=== PATIENT | female | born 1985 | race Hispanic/Latino ===

== ENCOUNTER 2017-07-26 09:35 | Inpatient (IN) | payer BC, OTHER ==
[~2017-07-26] VITALS: Ht 154.9 cm; Wt 81.6 kg
[~2017-07-26 09:35] MED LIST: LINZESS PO
[2017-07-26] MEDS ORDERED: ONDANSETRON HCL INJ 2 MG/ML VIAL IV STA (10:16)
[2017-07-26] MEDS ORDERED: MORPHINE SULFATE 4 MG/ML SYR IV STA (10:16)
[2017-07-26] MEDS ORDERED: SODIUM CHLORIDE 0.9% 1000ML 1,000 ML IV STA (10:16)
[2017-07-26] MEDS ORDERED: MORPHINE SULFATE 2 MG/ML SYR ONE (10:37)
[2017-07-26 10:59] LABS: BASOPHILS % 0.1 % (0.0-1.0); EOSINOPHILS # (AUTO) 0.1 (0.0-0.4); EOSINOPHILS % 0.8 % (0.0-6.0); HEMATOCRIT 38.2 % (34.2-44.1); HEMOGLOBIN 12.1 g/dL (12.0-16.0); LYMPHOCYTES # (AUTO) 1.7 (1.0-3.2); LYMPHOCYTES % 12.7 % (18.0-39.1); MEAN CORPUSCULAR HEMOGLOBIN 29.1 pg (28-32); MEAN CORPUSCULAR HGB CONC 31.7 g/dL (31-35); MEAN CORPUSCULAR VOLUME 91.8 fL (81-99); MONOCYTES # (AUTO) 0.9 (0.2-0.8); MONOCYTES % 6.6 % (4.4-11.3); NEUTROPHILS # (AUTO) 10.3 (2.1-6.9); NEUTROPHILS % 79.5 % (38.7-80.0); PLATELET COUNT 281 x10e3/uL (140-360); RED BLOOD COUNT 4.16 x10e6/uL (3.6-5.1); RED CELL DISTRIBUTION WIDTH 13.8 % (11.7-14.4)
[2017-07-26 11:16] LABS: BILIRUBIN,URINE NEGATIVE (NEGATIVE); CLARITY,URINE SL CLOUDY (CLEAR); COLOR,URINE AMBER (YELLOW); KETONES,URINE NEGATIVE (NEGATIVE); LEUKOCYTE ESTERASE ,URINE NEGATIVE (NEGATIVE); NITRITE,URINE NEGATIVE (NEGATIVE); PROTEIN,URINE DIPSTICK NEGATIVE (NEGATIVE); URINE UROBILINOGEN 0.2 mg/dL (0.2 - 1)
[2017-07-26 11:17] LABS: BACTERIA,URINE RARE /HPF; EPITHELIAL CELLS,URINE FEW /LPF; RBC,URINE 0-5 /HPF (0-5)
[2017-07-26 11:20] LABS: AMORPHOUS SEDIMENT,URINE RARE (FEW); MUCUS,URINE RARE (RARE)
[2017-07-26 11:22] LABS: ALANINE AMINOTRANSFERASE 14 IU/L (0-55); ALBUMIN 3.7 g/dL (3.5-5.0); ALKALINE PHOSPHATASE 69 IU/L (40-150); ANION GAP 12.8 mmol/L (8-16); BLOOD UREA NITROGEN 10 mg/dL (7-26); BUN/CREATININE RATIO 14 (6-25); CALCIUM 9.3 mg/dL (8.4-10.2); CARBON DIOXIDE 25 mmol/L (22-29); CHLORIDE 107 mmol/L (98-107); CREATININE, SERUM 0.69 mg/dL (0.57-1.11); EST GLOMERULAR FILTRATION RATE > 60 ML/MIN (60-); GLUCOSE 91 mg/dL (74-118); POTASSIUM 3.8 mmol/L (3.5-5.1); SODIUM 141 mmol/L (136-145)
[2017-07-26] MEDS ORDERED: KETOROLAC TROMETHAMINE 30 MG/ML VIAL IV STA (11:44)
--- NOTE | 2017-07-26 12:04 | Diagnostic Imaging Report ---
PROCEDURE: CT ABDOMEN AND PELVIS WITHOUT CONTRAST TECHNIQUE: The abdomen and pelvis were scanned utilizing a multidetector helical scanner from the diaphragm to the lesser trochanter without contrast medium. No IV contrast was administered per protocol/per physician request). Coronal and sagittal multiplanar reformations were obtained. DLP: 589.39 COMPARISON: None. INDICATIONS: Severe left-sided flank pain. FINDINGS: ABSENCE OF INTRAVENOUS CONTRAST DECREASES SENSITIVITY FOR DETECTION OF FOCAL LESIONS AND VASCULAR PATHOLOGY. LOWER THORAX: Normal. HEPATOBILIARY: No focal hepatic lesions. No biliary ductal dilatation. There are non-calcified calculi and sludge within the gallbladder lumen. SPLEEN: No splenomegaly. PANCREAS: No focal masses or ductal dilatation. ADRENALS: No adrenal nodules. KIDNEYS/URETERS: No hydronephrosis, stones, or solid mass lesions. Duplicated left renal collecting system. PELVIC ORGANS/BLADDER: Unremarkable. PERITONEUM / RETROPERITONEUM: Small volume of free fluid within the cul-de-sac. LYMPH NODES: No lymphadenopathy. VESSELS: Unremarkable. GI TRACT: No distention or wall thickening. Diverticulosis throughout the entire colon. There is marked stranding of the fat about the posterior aspect of the proximal to mid descending colon, consistent with a trace volume of free fluid, consistent with acute diverticulitis. No exacerbation of his time. BONES AND SOFT TISSUES: Small fat-containing umbilical hernia. IMPRESSION: 1. Acute descending colon diverticulitis. No abscess formation. 2. Cholelithiasis and gallbladder sludge. No biliary dilatation. Denilson Rodgers M.D. Dictated by: Denilson Rodgers M.D. on 07/26/2017 at 12:05 Electronically approved by: Denilson Rodgers M.D. on 07/26/2017 at 12:05
[2017-07-26] MEDS ORDERED: CIPROFLOXACIN 400 MG/D5W 200ML 200 ML IV ONE (12:45)
[2017-07-26] MEDS ORDERED: METRONIDAZOLE 500MG/NS 100ML 100 ML IV ONE (12:45)
--- NOTE | 2017-07-26 13:38 | Diagnostic Imaging Report ---
PROCEDURE:US PELVIS COMPLETE NON OB COMPARISON:None. INDICATIONS:R/O OVARIAN CYST/TORSION CONCLUSION: Please refer to ultrasound pelvic Doppler performed at the same date and time for full dictated report. Denilson Rodgers M.D. Dictated by: Denilson Rodgers M.D. on 07/26/2017 at 13:39 Electronically approved by: Denilson Rodgers M.D. on 07/26/2017 at 13:39
--- NOTE | 2017-07-26 13:38 | Diagnostic Imaging Report ---
PROCEDURE:PELVIC DOPPLER US COMPARISON:[facility], CT, CT ABDOMEN/PELVIS WO, 07/26/2017, 11:42. INDICATIONS:R/O OVARIAN CYST/TORSION FINDINGS: A0. LMP: 07/07/17. Multiple sagittal and axial images were obtained of the pelvis transabdominally and transvaginally. The uterus measures 8.1 x 4.8 x 6.2 cm. It is of normal echogenicity without focal masses. The endometrial stripe measures 1.0 and is within normal limits. The cervix is normal in appearance. The right ovary measures 3.4 x 1.8 x 2.6 cm. It is of normal echogenicity without focal masses. The left ovary measures 2.8 x 2.3 x 2.8 cm. It is of normal echogenicity without focal masses. No right or left paraovarian masses identified. Color and spectral Doppler demonstrated blood flow within both ovaries. Moderate free fluid seen within the pelvic cul-de-sac. CONCLUSION: 1. No evidence of ovarian torsion. 2. Moderate volume of free fluid within the cul-de-sac, otherwise unremarkable study. Denilson Rodgers M.D. Dictated by: Denilson Rodgers M.D. on 07/26/2017 at 13:39 Electronically approved by: Denilson Rodgers M.D. on 07/26/2017 at 13:39
[2017-07-26] MEDS ORDERED: HYDROMORPHONE 1MG/1ML INJ IV STA (13:39)
[2017-07-26] MEDS ORDERED: HYDROMORPHONE 1MG/1ML INJ IV SCH (13:45)
[2017-07-26] MEDS: METRONIDAZOLE 500MG/NS 100ML 100 ML IV SCH ×2 (13:59→21:45)
[2017-07-26] MEDS: SODIUM CHLORIDE 0.9% 1000ML 1,000 ML IV SCH ×2 (13:59→21:44)
[2017-07-26] MEDS ORDERED: METRONIDAZOLE 500MG/NS 100ML IV SCH (14:00)
[2017-07-26] MEDS: CIPROFLOXACIN 400 MG/D5W 200ML 200 ML IV SCH (14:30)
--- OUTSIDE RECORDS SUMMARY | 2017-07-26 15:14 | XMS REPORT ---
Author Author [facility] Address Unknown Phone Unavailable Care Team Providers Care Manager Agricultural Name Role Phone VICTOR MANUEL NIX Unavailable Unavailable Problems This patient has no known problems. Allergies, Adverse Reactions, Alerts This patient has no known allergies or adverse reactions. Medications This patient has no known medications. Results Test Description Test Time Test Comments Text Results Atomic Results Result Comments CT ABDOMEN/PELVIS WO [place] [address] Patient Name: LIZZ PALUMBO MR #: [id number] : 1985 Age/Sex: 32/F Req #: [id number] Adm Physician: Ordered by: JONAH RIBEIRO [employer] OF [employer] Report #: [id number] Location: ER Room/Bed: Procedure: [id number] CT/CT ABDOMEN/PELVIS WO Exam Date: 07/26/17 Exam Time: 1153 REPORT STATUS: Signed PROCEDURE: CT ABDOMEN AND PELVIS WITHOUT CONTRAST TECHNIQUE: The abdomen and pelvis were scanned utilizing a multidetector helical scanner from the diaphragm to the lesser trochanter without contrast medium. No IV contrast was administered per protocol/per physician request). Coronal and sagittal multiplanar reformations were obtained. DLP: 589.39 COMPARISON: None. INDICATIONS: Severe left-sided flank pain. FINDINGS: ABSENCE OF INTRAVENOUS CONTRAST DECREASES SENSITIVITY FOR DETECTION OF FOCAL LESIONS AND VASCULAR PATHOLOGY. LOWER THORAX: Normal. HEPATOBILIARY: No focal hepatic lesions. No biliary ductal dilatation. There are non- calcified calculi and sludge within the gallbladder lumen. SPLEEN: No splenomegaly. PANCREAS: No focal masses or ductal dilatation. ADRENALS: No adrenal nodules. KIDNEYS/URETERS: No hydronephrosis, stones, or solid mass lesions. Duplicated left renal collecting system. PELVIC ORGANS/BLADDER: Unremarkable. PERITONEUM / RETROPERITONEUM: Small volume of free fluid within the cul-de-sac. LYMPH NODES: No lymphadenopathy. VESSELS: Unremarkable. GI TRACT: No distention or wall thickening. Diverticulosis throughout the entire colon. There is marked stranding of the fat about the posterior aspect of the proximal to mid descending colon, consistent with a trace volume of free fluid, consistent with acute diverticulitis. No exacerbation of his time. BONES AND SOFT TISSUES: Small fat-containing umbilical hernia. IMPRESSION: 1. Acute descending colon diverticulitis. No abscess formation. 2. Cholelithiasis and gallbladder sludge. No biliary dilatation. Denilson Hansen M.D. Dictated by: Denilson Hansen M.D. on 07/26/2017 at 12:05 Electronically approved by: Denilson Hansen M.D. on 07/26/2017 at 12: 05 Dictated By: SYED HANSEN MD, MD [id number] Transcribed By: EFRAÍN on 07/26/17 1205 COPY TO: JONAH RIBEIRO [employer] PELVIC DOPPLER [place] [address] Patient Name: LIZZ PALUMBO MR #: [id number] : 1985 Age/Sex: 32/F Req #: [id number] Adm Physician: Ordered by: JONAH RIBEIRO NP Report #: [id number] Location: ER Room/Bed: Procedure: [id number] US/US PELVIC DOPPLER LTD Exam Date: Exam Time: REPORT STATUS: Signed PROCEDURE: PELVIC DOPPLER US COMPARISON: Patients [facility], CT, CT ABDOMEN/ PELVIS WO, 07/26/2017, 11:42. INDICATIONS: R/O OVARIAN CYST/ TORSION FINDINGS: A0. LMP: 07/07/17. Multiple sagittal and axial images were obtained of the pelvis transabdominally and transvaginally. The uterus measures 8.1 x 4.8 x 6.2 cm. It is of normal echogenicity without focal masses. The endometrial stripe measures 1.0 and is within normal limits. The cervix is normal in appearance. The right ovary measures 3.4 x 1.8 x 2.6 cm. It is of normal echogenicity without focal masses. The left ovary measures 2.8 x 2.3 x 2.8 cm. It is of normal echogenicity without focal masses. No right or left paraovarian masses identified. Color and spectral Doppler demonstrated blood flow within both ovaries. Moderate free fluid seen within the pelvic cul-de-sac. CONCLUSION: 1. No evidence of ovarian torsion. 2. Moderate volume of free fluid within the cul-de-sac, otherwise unremarkable study. Denilson Hansen M.D. Dictated by: Denilson Hansen M.D. on 05/2017 at 13:39 Electronically approved by: Denilson Hansen M.D. on 07/26/2017 at 13:39 Dictated By: SYED HANSEN MD, MD [id number] Transcribed By : EFRAÍN on 07/26/17 1339 COPY TO: JONAH RIBEIRO [employer] US PELVIS COMPLETE NON OB [place] [address] Patient Name: LIZZ PALUMBO MR #: [id number] : 1985 Age/Sex: 32/F Req #: [id number] Adm Physician: Ordered by: JONAH RIBEIRO [employer] Report #: [id number] Location: ER Room/Bed: Procedure: [id number] US/US PELVIS COMPLETE NON OB Exam Date: Exam Time: REPORT STATUS: Signed PROCEDURE: US PELVIS COMPLETE NON OB COMPARISON: None. INDICATIONS: R/O OVARIAN CYST/TORSION CONCLUSION: Please refer to ultrasound pelvic Doppler performed at the same date and time for full dictated report. Denilson Hansen M.D. Dictated by: Denilson Hansen M.D. on 07/26/2017 at 13: 39 Electronically approved by: Denilson Hansen M.D. on 07/26/2017 at 13:39 Dictated By: SYED HANSEN MD, MD [id number] Transcribed By: EFRAÍN on 07/262 COPY TO: JONAH RIBEIRO [employer]
[2017-07-26] MEDS: MORPHINE SULFATE 2 MG/ML SYR IV PRN (19:50)
[2017-07-26 21:27] VITALS: BP 106/58
[2017-07-26 21:40] VITALS: BP 100/61
[2017-07-26] MEDS: ONDANSETRON HCL INJ 2 MG/ML VIAL IV PRN (21:45)
[2017-07-27] VITALS (9 sets, daily range): BP systolic 93–119; BP diastolic 51–99
[2017-07-27] MEDS: MORPHINE SULFATE 2 MG/ML SYR IV PRN ×2 (00:50→06:24)
[2017-07-27] MEDS: CIPROFLOXACIN 400 MG/D5W 200ML 200 ML IV SCH ×2 (01:30→13:24)
[2017-07-27] MEDS: SODIUM CHLORIDE 0.9% 1000ML 1,000 ML IV SCH ×3 (05:06→22:11)
[2017-07-27] MEDS: METRONIDAZOLE 500MG/NS 100ML 100 ML IV SCH ×3 (05:32→22:11)
[2017-07-27] MEDS: ONDANSETRON HCL INJ 2 MG/ML VIAL IV PRN (06:20)
[2017-07-27 06:47] LABS: BASOPHILS % 0.2 % (0.0-1.0); EOSINOPHILS # (AUTO) 0.2 (0.0-0.4); EOSINOPHILS % 1.6 % (0.0-6.0); HEMATOCRIT 31.2 % (34.2-44.1); HEMOGLOBIN 9.9 g/dL (12.0-16.0); LYMPHOCYTES # (AUTO) 1.9 (1.0-3.2); LYMPHOCYTES % 18.2 % (18.0-39.1); MEAN CORPUSCULAR HEMOGLOBIN 28.9 pg (28-32); MEAN CORPUSCULAR HGB CONC 31.7 g/dL (31-35); MEAN CORPUSCULAR VOLUME 91.2 fL (81-99); MONOCYTES # (AUTO) 0.9 (0.2-0.8); MONOCYTES % 8.8 % (4.4-11.3); NEUTROPHILS # (AUTO) 7.3 (2.1-6.9); NEUTROPHILS % 70.7 % (38.7-80.0); PLATELET COUNT 209 x10e3/uL (140-360); RED BLOOD COUNT 3.42 x10e6/uL (3.6-5.1); RED CELL DISTRIBUTION WIDTH 13.6 % (11.7-14.4)
[2017-07-27 07:19] LABS: BLOOD UREA NITROGEN 7 mg/dL (7-26); BUN/CREATININE RATIO 10 (6-25); CALCIUM 8.3 mg/dL (8.4-10.2); CARBON DIOXIDE 24 mmol/L (22-29); CHLORIDE 109 mmol/L (98-107); CREATININE, SERUM 0.72 mg/dL (0.57-1.11); EST GLOMERULAR FILTRATION RATE > 60 ML/MIN (60-); GLUCOSE 92 mg/dL (74-118); SODIUM 139 mmol/L (136-145)
[2017-07-27] MEDS: ACETAMINOPHEN 325 MG TAB PO PRN (18:53)
[2017-07-27] MEDS: HYDROCODONE/APAP 7.5MG-325MG 1 EA TAB PO PRN (22:00)
[2017-07-28] VITALS (7 sets, daily range): BP systolic 90–98; BP diastolic 47–68
[2017-07-28] MEDS: CIPROFLOXACIN 400 MG/D5W 200ML 200 ML IV SCH ×2 (01:00→13:00)
[2017-07-28] MEDS: SODIUM CHLORIDE 0.9% 1000ML 1,000 ML IV SCH ×3 (05:19→20:51)
[2017-07-28] MEDS: METRONIDAZOLE 500MG/NS 100ML 100 ML IV SCH ×3 (05:31→22:17)
[2017-07-28 06:52] LABS: BASOPHILS % 0.3 % (0.0-1.0); EOSINOPHILS # (AUTO) 0.2 (0.0-0.4); EOSINOPHILS % 2.5 % (0.0-6.0); LYMPHOCYTES % 25.5 % (18.0-39.1); MEAN CORPUSCULAR HEMOGLOBIN 29.5 pg (28-32); MEAN CORPUSCULAR HGB CONC 32.3 g/dL (31-35); MEAN CORPUSCULAR VOLUME 91.4 fL (81-99); MONOCYTES # (AUTO) 0.6 (0.2-0.8); MONOCYTES % 7.6 % (4.4-11.3); NEUTROPHILS % 63.8 % (38.7-80.0); PLATELET COUNT 228 x10e3/uL (140-360); RED BLOOD COUNT 3.39 x10e6/uL (3.6-5.1); RED CELL DISTRIBUTION WIDTH 13.2 % (11.7-14.4)
[2017-07-28 07:36] LABS: FERRITIN 134.81 ng/mL (4.63-204.00)
[2017-07-28 08:12] LABS: FOLATE 13.9 ng/mL (7.0-15.4)
[2017-07-28] MEDS: HYDROCODONE/APAP 7.5MG-325MG 1 EA TAB PO PRN (09:29)
[2017-07-29] VITALS (8 sets, daily range): BP systolic 98–114; BP diastolic 52–66
[2017-07-29] MEDS: CIPROFLOXACIN 400 MG/D5W 200ML 200 ML IV SCH ×2 (00:43→13:35)
[2017-07-29] MEDS: SODIUM CHLORIDE 0.9% 1000ML 1,000 ML IV SCH ×3 (04:32→20:51)
[2017-07-29] MEDS: METRONIDAZOLE 500MG/NS 100ML 100 ML IV SCH ×3 (05:28→21:32)
[2017-07-29] MEDS: ACETAMINOPHEN 325 MG TAB PO PRN (05:28)
[2017-07-29] MEDS: IRON-VITAMIN-MINERAL CAPSULE PO SCH ×2 (08:48→21:32)
[2017-07-29] MEDS: CYANOCOBALAMIN INJ 1,000 MCG/ML VIAL IM SCH (08:48)
[2017-07-29] MEDS ORDERED: DIPHENOXYLATE/ATROPINE TAB PO ONE (23:30)
[2017-07-30] VITALS: BP 100/59
[2017-07-30] MEDS: CIPROFLOXACIN 400 MG/D5W 200ML 200 ML IV SCH ×2 (01:13→12:49)
[2017-07-30] MEDS: SODIUM CHLORIDE 0.9% 1000ML 1,000 ML IV SCH ×2 (03:03→11:45)
[2017-07-30 04:00] VITALS: BP 100/54
[2017-07-30] MEDS: METRONIDAZOLE 500MG/NS 100ML 100 ML IV SCH ×2 (05:59→13:50)
[2017-07-30 06:22] LABS: BASOPHILS % 0.3 % (0.0-1.0); EOSINOPHILS # (AUTO) 0.2 (0.0-0.4); EOSINOPHILS % 3.2 % (0.0-6.0); HEMATOCRIT 31.8 % (34.2-44.1); HEMOGLOBIN 10.2 g/dL (12.0-16.0); LYMPHOCYTES # (AUTO) 2.3 (1.0-3.2); LYMPHOCYTES % 32.8 % (18.0-39.1); MEAN CORPUSCULAR HEMOGLOBIN 28.7 pg (28-32); MEAN CORPUSCULAR HGB CONC 32.1 g/dL (31-35); MEAN CORPUSCULAR VOLUME 89.3 fL (81-99); MONOCYTES # (AUTO) 0.5 (0.2-0.8); MONOCYTES % 6.8 % (4.4-11.3); NEUTROPHILS # (AUTO) 3.9 (2.1-6.9); NEUTROPHILS % 56.6 % (38.7-80.0); PLATELET COUNT 266 x10e3/uL (140-360); RED BLOOD COUNT 3.56 x10e6/uL (3.6-5.1); RED CELL DISTRIBUTION WIDTH 12.6 % (11.7-14.4)
[2017-07-30 06:46] LABS: ANION GAP 10.7 mmol/L (8-16); BLOOD UREA NITROGEN 5 mg/dL (7-26); BUN/CREATININE RATIO 7 (6-25); CALCIUM 8.6 mg/dL (8.4-10.2); CARBON DIOXIDE 24 mmol/L (22-29); CHLORIDE 111 mmol/L (98-107); CREATININE, SERUM 0.69 mg/dL (0.57-1.11); EST GLOMERULAR FILTRATION RATE > 60 ML/MIN (60-); GLUCOSE 94 mg/dL (74-118); POTASSIUM 4.7 mmol/L (3.5-5.1); SODIUM 141 mmol/L (136-145)
[2017-07-30 08:07] VITALS: BP 101/51
[2017-07-30] MEDS: CYANOCOBALAMIN INJ 1,000 MCG/ML VIAL IM SCH (08:38)
[2017-07-30] MEDS: IRON-VITAMIN-MINERAL CAPSULE PO SCH (08:38)
[2017-07-30 08:47] VITALS: BP 101/51
[2017-07-30 11:57] VITALS: BP 104/59
[2017-07-30] MEDS ORDERED: CIPRO500 MG PO (13:18)
[2017-07-30] MEDS ORDERED: FLAGYL250 MG PO (13:19)
== END 2017-07-30 17:58 | disposition home or self-care (01) | DRG 392 ==
LOC: ER 09:35 → ERHOLD 15:11 → MED/SURG 21:17
DX: K57.32 Diverticulitis of large intestine without perforation or abscess without bleeding (principal); D51.9 Vitamin B12 deficiency anemia, unspecified; D50.9 Iron deficiency anemia, unspecified; D63.8 Anemia in other chronic diseases classified elsewhere
CPT/HCPCS: 36415; 74176; 76856; 80048; 80053; 81001; 81025; 82607; 82728; 82746; 82948; 83540; 84466; 85025; 85045; 87086; 93976; 99284; J1170; J1885; J2270; J2405; J3420; J7030

== ENCOUNTER 2018-11-04 17:08 | Emergency (ER) | payer OTHER ==
[~2018-11-04] VITALS: Ht 154.9 cm; Wt 86.2 kg
[~2018-11-04 17:08] MED LIST changes: +CIPRO500 MG PO; +FLAGYL250 MG PO
--- NOTE | 2018-11-04 18:23 | Diagnostic Imaging Report ---
ANKLE 3 + VIEWS RIGHT - 3 views HISTORY: Pain. COMPARISON: None available. FINDINGS: Bones: No acute displaced fracture. Tiny ossicle projected adjacent to the medial malleolus may represent a tiny avulsion injury. Osseous alignment is within normal limits. Joints: The joint spaces are well-maintained. Soft tissues: Mild soft tissue swelling. IMPRESSION: Tiny ossicle projected adjacent to the medial malleolus may represent a tiny avulsion injury. Signed by: Dr. Denilson Rodgers M.D. on 11/04/2018 6:20 PM
== END 2018-11-04 20:05 | disposition home or self-care (01) ==
LOC: ER 17:08
DX: S82.54XA Nondisplaced fracture of medial malleolus of right tibia, initial encounter for closed fracture (principal); X50.1XXA Overexertion from prolonged static or awkward postures, initial encounter; Y99.0 Civilian activity done for income or pay
CPT/HCPCS: 99283

== ENCOUNTER 2019-06-05 13:46 | Emergency (ER) | payer OTHER ==
[~2019-06-05] VITALS: Ht 154.9 cm; Wt 86.2 kg
[2019-06-05] MEDS ORDERED: ONDANSETRON HCL INJ 2MG/ML 2ML 2 MG/ML VIAL IV STA (14:07)
[2019-06-05] MEDS ORDERED: MORPHINE SULFATE INJ 4 MG/ML INJ 1ML IV STA (14:07)
[2019-06-05] MEDS ORDERED: SODIUM CHLORIDE 0.9% 1000ML 1,000 ML IV STA (14:07)
[2019-06-05] MEDS ORDERED: CEFEPIME HCL 1 GM VIAL IV ONE (14:15)
[2019-06-05] MEDS ORDERED: CEFEPIME 1GM/NS 0.9% 50 ML 50 ML IV ONE (14:30)
[2019-06-05 14:38] LABS: BASOPHILS % 0.3 % (0.0-1.0); EOSINOPHILS # (AUTO) 0.2 (0.0-0.4); EOSINOPHILS % 2.4 % (0.0-6.0); HEMATOCRIT 37.2 % (34.2-44.1); HEMOGLOBIN 11.3 g/dL (12.0-16.0); LYMPHOCYTES # (AUTO) 2.4 (1.0-3.2); LYMPHOCYTES % 29.4 % (18.0-39.1); MEAN CORPUSCULAR HEMOGLOBIN 27.8 pg (28-32); MEAN CORPUSCULAR HGB CONC 30.4 g/dL (31-35); MEAN CORPUSCULAR VOLUME 91.4 fL (81-99); MONOCYTES # (AUTO) 0.4 (0.2-0.8); MONOCYTES % 5.5 % (4.4-11.3); NEUTROPHILS % 62.1 % (38.7-80.0); PLATELET COUNT 332 x10e3/uL (140-360); RED BLOOD COUNT 4.07 x10e6/uL (3.6-5.1); RED CELL DISTRIBUTION WIDTH 13.2 % (11.7-14.4)
[2019-06-05 14:43] LABS: BILIRUBIN,URINE NEGATIVE (NEGATIVE); CLARITY,URINE SL CLOUDY (CLEAR); COLOR,URINE YELLOW (YELLOW); KETONES,URINE NEGATIVE (NEGATIVE); LEUKOCYTE ESTERASE ,URINE NEGATIVE (NEGATIVE); NITRITE,URINE NEGATIVE (NEGATIVE); PREGNANCY TEST, URINE NEGATIVE (NEGATIVE); PROTEIN,URINE DIPSTICK NEGATIVE (NEGATIVE); URINE UROBILINOGEN 0.2 mg/dL (0.2 - 1)
[2019-06-05 14:57] LABS: ALANINE AMINOTRANSFERASE 15 IU/L (0-55); ALBUMIN/GLOBULIN RATIO 1.1 (0.8-2.0); ALKALINE PHOSPHATASE 75 IU/L (40-150); AMYLASE 50 U/L (25-125); ANION GAP 14.6 mmol/L (8-16); BACTERIA,URINE MANY /HPF; BLOOD UREA NITROGEN 11 mg/dL (7-26); BUN/CREATININE RATIO 15 (6-25); CALCIUM 9.2 mg/dL (8.4-10.2); CARBON DIOXIDE 25 mmol/L (22-29); CHLORIDE 107 mmol/L (98-107); CREATININE, SERUM 0.72 mg/dL (0.57-1.11); EPITHELIAL CELLS,URINE MANY /LPF; EST GLOMERULAR FILTRATION RATE > 60 ML/MIN (60-); GLUCOSE 95 mg/dL (74-118); LIPASE 16 U/L (8-78); POTASSIUM 3.6 mmol/L (3.5-5.1); RBC,URINE 0-5 /HPF (0-5); SODIUM 143 mmol/L (136-145)
[2019-06-05 15:46] VITALS: BP 129/75
== END 2019-06-05 15:47 | disposition home or self-care (01) ==
LOC: ER 13:46
DX: R10.11 Right upper quadrant pain (principal); K80.20 Calculus of gallbladder without cholecystitis without obstruction
CPT/HCPCS: 36415; 80053; 81001; 81025; 82150; 83690; 85025; 99284

== ENCOUNTER → 2019-06-15 | Outpatient (CLI) | payer OTHER ==
[~2019-06-15] MED LIST changes: +IOPAMIDOL 370 MG/ML 200 ML INFUS..BTL INJ ONE; +SODIUM CHLORIDE 0.9% 250ML 250 ML ONE
--- NOTE | 2019-06-15 13:48 | Diagnostic Imaging Report ---
Exam: CT abdomen and pelvis Clinical history: Biliary calculus and microscopic hematuria Technique: Helical images of the abdomen and pelvis were obtained before and after IV contrast administration DOSE REDUCTION: The exams was performed according to the departmental dose-optimization program which includes automated exposure control, adjustment of the mA and/or kV according to patient size and/or use of iterative reconstruction technique. Findings: The lung bases are clear. There is no evidence of pleural effusion. The cardiac size is within normal limits. The liver, spleen, pancreas, gallbladder, adrenal glands, and kidneys are unremarkable. A partially duplicated left renal collecting system is noted. Next The small and large bowels are normal in caliber without evidence of obstruction. The appendix is normal in caliber. Next The uterus, ovaries, and bladder are unremarkable. There is no evidence of lymphadenopathy or free fluid. The aorta and IVC are normal in caliber. Impression: 1. Partially duplicated left renal collecting system, otherwise, unremarkable CT abdomen and pelvis. Signed by: Dr. Maurilio Carlson MD on 06/15/2019 1:46 PM
== END ==
LOC: CT 11:28
PROVIDERS: ATTEND Family Medicine
DX: K80.80 Other cholelithiasis without obstruction (principal); R93.89 Abnormal findings on diagnostic imaging of other specified body structures; R31.29 Other microscopic hematuria; R10.84 Generalized abdominal pain; M54.6 Pain in thoracic spine
CPT/HCPCS: 74178; 81025; J7050; Q9967

== ENCOUNTER → 2021-01-03 | Day surgery (SDC) | payer OTHER ==
[~2021-01-03] MED LIST changes: +CEFTRIAXONE 1 GM VIAL ONE; +IOPAMIDOL 300MG/ML 50ML INFUS..BTL IV ONE; -IOPAMIDOL 370 MG/ML 200 ML INFUS..BTL INJ ONE; +LIDOCAINE HCL 2% LOCAL INJ 5 ML SDV VIAL INJ ONE; +ONDANSETRON HCL INJ 2MG/ML 2ML 2 MG/ML VIAL ONE; +POVIDONE IODINE 0.05% 0.05 % ML PO ONE; +PROPOFOL IV EMULSION 10 MG/ML 20 ML VIAL ONE; +SEVOFLURANE INHAL SOLN 250 ML PEN BTL ONE; -SODIUM CHLORIDE 0.9% 250ML 250 ML ONE; +SODIUM CHLORIDE 0.9% 50ML 50 ML ONE; +penicillin PO
[2021-01-03 10:00] VITALS: BP 145/87
== END | disposition home or self-care (01) ==
LOC: OR 07:42
PROVIDERS: ATTEND Urology
DX: R31.29 Other microscopic hematuria (principal); Q62.5 Duplication of ureter; Z01.812 Encounter for preprocedural laboratory examination; Z20.822 Contact with and (suspected) exposure to COVID-19
CPT/HCPCS: 52005; 74420; 81025; C1758; C1769; J0696; Q9967; U0002; J2001; J2405

== ENCOUNTER 2021-04-26 18:38 | Emergency (ER) | payer OTHER ==
[~2021-04-26] VITALS: Ht 154.9 cm; Wt 96.4 kg
[~2021-04-26 18:38] MED LIST changes: -CEFTRIAXONE 1 GM VIAL ONE; -IOPAMIDOL 300MG/ML 50ML INFUS..BTL IV ONE; -LIDOCAINE HCL 2% LOCAL INJ 5 ML SDV VIAL INJ ONE; -ONDANSETRON HCL INJ 2MG/ML 2ML 2 MG/ML VIAL ONE; -POVIDONE IODINE 0.05% 0.05 % ML PO ONE; -PROPOFOL IV EMULSION 10 MG/ML 20 ML VIAL ONE; -SEVOFLURANE INHAL SOLN 250 ML PEN BTL ONE; -SODIUM CHLORIDE 0.9% 50ML 50 ML ONE
[2021-04-26] MEDS ORDERED: ONDANSETRON HCL INJ 2MG/ML 2ML 2 MG/ML VIAL IV STA (18:53)
[2021-04-26] MEDS ORDERED: KETOROLAC TROMETHAMINE 30 MG/ML VIAL IV STA (18:53)
[2021-04-26] MEDS ORDERED: SODIUM CHLORIDE 0.9% 1000ML 1,000 ML IV SCH (19:00)
[2021-04-26] MEDS ORDERED: SODIUM CHLORIDE 0.9% 1000ML 1,000 ML ONE (19:32)
[2021-04-26] MEDS ORDERED: ONDANSETRON HCL INJ 2MG/ML 2ML 2 MG/ML VIAL ONE (19:32)
[2021-04-26] MEDS ORDERED: KETOROLAC TROMETHAMINE 30 MG/ML VIAL ONE (19:32)
[2021-04-26] MEDS ORDERED: KETOROLAC TROME10 MG PO (20:33)
[2021-04-26] MEDS ORDERED: ONDANSETRON ODT4 MG PO (20:33)
[2021-04-26] MEDS ORDERED: FLOMAX0.4 MG PO (20:33)
[2021-04-26 20:36] VITALS: BP 160/89
== END 2021-04-26 20:36 | disposition home or self-care (01) ==
LOC: FSED 18:43
DX: N20.0 Calculus of kidney (principal); K76.0 Fatty (change of) liver, not elsewhere classified; K57.30 Diverticulosis of large intestine without perforation or abscess without bleeding
CPT/HCPCS: 74176; 80048; 80076; 81003; 81025; 85025; 96374; 96376; 99284; J1885; J2405; J7030